=== PATIENT | female | born 1945 | race Caucasian/White ===

== ENCOUNTER 2016-08-19 09:47 | Day surgery (SDC) | payer MEDICARE, BC ==
--- NOTE | ~2016-08-19 | EGD ---
EGD REPORT [facility] [address] [place] [place] [place] [address] NAME: CECILIA KIRBY : [birth year] STATUS : REG [facility]#: [id number] AGE: 70 ADM/REG DATE : 08/19/16 MR#: [id number] REPORT SERV DATE: 08/19/16 DICTATED BY: MILLY SCHULTZ DATE: 08/19/16 REPORT STATUS : Draft TRANSCRIBED BY: [facility] DATE: 08/19/16 Endoscopy Center Patient Name: Cecilia Kirby Date of : 1945 Attending MD: MILLY SCHULTZ MD Procedure Date No Time: 08/19/2016 Procedure: Colonoscopy Indications: Screening for colorectal malignant neoplasm Referring MD: BROOKS JASMINE Medicines: as per anesthesia Complications: No immediate complications. Procedure: Pre-Anesthesia Assessment: - ASA Grade Assessment: III - A patient with severe systemic disease. After I obtained informed consent, the scope was passed under direct vision. Throughout the procedure, the patient's blood pressure, pulse, and oxygen saturations were monitored continuously. The PCF [id number] was introduced through the anus and advanced to the cecum, identified by appendiceal orifice and ileocecal valve. The colonoscopy was somewhat difficult due to significant looping and a tortuous colon. The patient tolerated the procedure. The quality of the bowel preparation was adequate to identify polyps. Findings: The perianal and digital rectal examinations were normal. Internal hemorrhoids were found during endoscopy and were mild. Impression: - Internal hemorrhoids. Recommendation: - Continue present medications. Procedure Code(s): --- Professional --- 89265, Colonoscopy, flexible, proximal to splenic flexure; diagnostic, with or without collection of specimen(s) by brushing or washing, with or without colon decompression (separate procedure) Diagnosis Code(s): --- Professional --- K64.8, Other hemorrhoids Z12.11, Encounter for screening for malignant neoplasm of colon EGD REPORT [facility] [address] [address] NAME: CECILIA KIRBY : [birth year] STATUS : REG [facility] [place] PAT#: [id number] AGE: 70 ADM/REG DATE : 08/19/16 MR#: [id number] REPORT SERV DATE: 08/19/16 DICTATED BY: MILLY SCHULTZ. DATE: 08/19/16 REPORT STATUS : Draft TRANSCRIBED BY: [employer] DATE: 08/19/16 CPT copyright 2013 [employer]. All rights reserved. 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 MILLY SCHULTZ MD 08/19/2016 2:31 PM This report has been signed electronically. Number of Addenda: 0 Note Initiated On: 08/19/2016 1:52 PM Scope Withdrawal Time 0 hours 8 minutes 50 seconds [address] [place] [id number]
[~2016-08-19 09:47] MED LIST: ALTACE10 MG PO; ASAB PO; AZO-TABS95 MG OR; AZO-TABS95 MG PO; CALTRA600D PO; FISH-EPA1000 MG PO; HYPOTEARS OPH; IMU PO; KLOR-CON M2020 MEQ PO; L20 PO; LIPITOR10 PO; P10 PO; P5 PO; PROLIA60 MG/1 ML SC; RECLAST IV; SM FLAX SEED1000 MG OR; VIT B-12 PO; VITAMIN D1000 UNI1 PO; [UNRECOGNIZED DRUG - OTHER] PO
== END 2016-08-19 23:59 | disposition home or self-care (01) ==
LOC: DMU 09:47
PROVIDERS: Internal Medicine Gastroenterology
PROC: 0DJD8ZZ Inspection of Lower Intestinal Tract, Via Natural or Artificial Opening Endoscopic (ICD-10-PCS; principal; 2016-08-19 11:30)
DX: Z12.11 Encounter for screening for malignant neoplasm of colon (principal); K64.8 Other hemorrhoids; E78.00 Pure hypercholesterolemia, unspecified; I10 Essential (primary) hypertension; Z88.8 Allergy status to other drugs, medicaments and biological substances; Z79.82 Long term (current) use of aspirin; Z79.899 Other long term (current) drug therapy; Z98.890 Other specified postprocedural states; Z90.89 Acquired absence of other organs
CPT/HCPCS: J2370